=== PATIENT | male | born 1970 | race Caucasian/White ===

== ENCOUNTER 2023-04-14 17:54 | Emergency (ER) | payer BC ==
[~2023-04-14] VITALS: Ht 187 cm; Wt 100.0 kg
[~2023-04-14 17:54] MED LIST: CIPR500T78 PO; CPR250T PO; HYDR-3583 PO; HYDR-3714 PO; MAGN-47 PO; METR500T PO; ONDA8TAB6 PO; OXYC-12 PO; PRM25T PO; SIME125T9 PO; TRAM50TA2 PO
[2023-04-14] MEDS ORDERED: LIDOCAINE/EPI 2% 1:100,00 (XYLOCAINE) 20 ML VIAL INJ STA (18:02)
--- NOTE | 2023-04-14 18:19 | ED Fall/Injury ---
General Chief Complaint: Laceration Stated Complaint: HEAD LACERATION Nursing Triage Note: PT SLIPPED ON THE MAJOR ON THE BOAT RAMP WHILE TRYING TO LOAD THEIR BOAT AT THE [place]ONI AND HIT HIS FACE ON THE CONCRETE. HE HAS A LACERATION RIGHT ABOVE HIS LEFT EYEBROW. DOES NOT THINK HE LOST CONSCIOUSNESS BUT REPORTS IT LEIDA HIM PRETTY GOOD. Source: patient, spouse History of Present Illness Date Seen by Provider: Apr 14, 2023 Time Seen by Provider: 17:56 Initial Comments 52-year-old male presenting by private vehicle from having a fall at the boat ramp where he had slipped trying to load the boat. He has a laceration to his left eyebrow. He denies loss of consciousness but states that it had been dazed him. He denies taking any blood thinners but does take fish oil and had been drinking alcohol today. He denies nausea, vomiting, change in vision, chest pain, neck pain, other injuries from the fall. He states he had last tetanus in last 1-2 years. Occurred: just prior to arrival Severity: moderate Injuries/Pain Location: face Context: slipped Loss of Consciousness: dazed Modifying Factors: Worse With Movement Associated Symptoms (Fall): No Abdominal Pain, No Chest Pain, No Confusion, No Dizziness; Headache (at left eyebrow where he has laceration and cut); No Lightheadedness, No Muscle Spasms, No Nausea/Vomiting, No Neck Pain, No Ringing in Ears, No Seizures, No Shortness of Air, No Slurred Speech, No Trouble Walking, No Vision Changes Allergies and Home Medications Allergies Coded Allergies: No Known Drug Allergies (Unverified , 08/31/11) Patient Home Medication List Home Medication List Reviewed: Yes Cephalexin (Cephalexin) 500 Mg Capsule, 500 MG PO QID Prescribed by: ELENA OMER on 04/14/231955 Metronidazole (Metronidazole) 500 Mg Tablet, 500 MG PO BID Prescribed by: ELENA OMER on 04/14/231955 Oxycodone Hcl/Acetaminophen (Percocet 5-325 Mg Tablet) 1 Each Tablet, 1 EACH PO Q4-6H PRN Prescribed by: ARTHUR REYES on 06/16/14 1115 Review of Systems Review of Systems Constitutional: No chills, No dizziness, No fever Eyes: Denies Blurred Vision, Denies Photophobia, Denies Vision Changes Ears, Nose, Mouth, Throat: denies ear pain, denies ear discharge, denies nose pain, denies nose discharge, denies epistaxis, denies loose teeth Respiratory: no symptoms reported Cardiovascular: no symptoms reported Gastrointestinal: No nausea, No vomiting Genitourinary: No dysuria Musculoskeletal: No neck pain Skin: see HPI Psychiatric/Neurological: See HPI; Denies Numbness, Denies Paresthesia, Denies Seizure, Denies Weakness Past Mndanmr-Esehrr-Scgnfa Hx Patient Social History Tobacco Use?: No Use of E-Cig and/or Vaping dev: Yes E-Cig or Vaping type used: Nicotine Use of E-Cig and/or Vaping Mendez: Current Everyday User Substance use?: No Alcohol Use?: Yes Alcohol type: Beer, Hard Liquor Alcohol Frequency: Daily Pt feels they are or have been: No Immunizations Up To Date Tetanus Booster (TDap): Less than 5yrs Past Medical History Reproductive Disorders: No Physical Exam Vital Signs Vital Signs - First Documented 04/14/23 18:04 Temp 36.2 Pulse 101 Resp 16 B/P (MAP) 127/88 (101) Pulse Ox 97 O2 Delivery Room Air Capillary Refill : Less Than 3 Seconds Height, Weight, BMI Height: 6'2.00" Weight: 230lbs. oz. 104.395357wu; 28.00 BMI Method:Stated General Appearance: WD/WN, other (blood all over face and left eyebrow) HEENT: PERRL/EOMI, TMs normal, pharynx normal, other (Negative francis sign, negative raccoon sign, no CSF otorrhea, no CSF rhinorrhea, no hemotympanum.) Neck: non-tender, full range of motion, supple, normal inspection Cardiovascular: normal peripheral pulses, regular rate, rhythm Respiratory: chest non-tender, lungs clear, normal breath sounds, no respirat ory distress, no accessory muscle use Gastrointestinal: normal bowel sounds, non tender, soft, no pulsatile mass Extremities: normal range of motion, non-tender, normal capillary refill 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, no motor/sensory deficits, alert, oriented x 3 Skin: warm/dry Salty Coma Score Best Eye Response: (4) Open Spontaneously Best Verbal Response: (5) Oriented Best Motor Response: (6) Obeys Commands Salty Total: 15 Procedures/Interventions Wound Location: Face (Left eyebrow) Wound Length (cm): 4.7 Wound's Depth, Shape: linear, contused tissue, sub Q Wound Explored: clean Irrigated w/ Saline (ccs): 250 Betadine Prep?: Yes Anesthesia: Lidocaine w/ Epi Volume Anesthetic (ccs): 7 Suture: Ethlion Suture Size: 5-0 Number of Sutures: 9 Layer Closure?: 1 Sterile Dressing Applied?: Yes Progress After obtaining verbal consent from the patient the wound was irrigated with 250 mils of saline and using Betadine and the wound was also scrubbed and explored. No foreign bodies were seen. The wound was anesthetized with let solution for approximately 15 minutes prior to injecting lidocaine with epinephrine 2%. He had a total of 7 mL of lidocaine with epinephrine infiltrated to the eyebrow laceration. He had a good anesthetic effect with this. Then using 5-0 Ethilon a total of 9 simple interrupted stitches were placed to approximate the wound edges. Patient tolerated procedure well without any immediate complications. Counseled on follow-up and return precautions. Advised to use ice and elevation of his head to help limit swelling and bruising. Stitches can be removed in 7 to 10 days here in the ED or with his primary care provider. Progress/Results/Core Measures Results/Orders My Orders Orders - ELENA OMER MD Ct Head/Face/Cervical Wo (04/14/23 18:01) Lidocaine/Epi 2% 1:100,000 (Xylocaine/Ep (04/14/23 18:02) Suture Set At Bedside (04/14/23 18:02) Wound Dressing-Ed (04/14/23 18:02) Let Solution (Let Solution) (04/14/23 18:36) Ice: Apply To Affected Area (04/14/23 18:36) Head Of Bed Q4H (04/14/23 18:36) Metronidazole Tablet (Flagyl Tablet) (04/14/23 19:53) Cephalexin Capsule (Keflex Capsule) (04/14/23 19:53) Vital Signs/I&O 04/14/23 04/14/23 18:04 20:03 Temp 36.2 36.2 Pulse 101 101 Resp 16 16 B/P (MAP) 127/88 (101) 127/88 Pulse Ox 97 97 O2 Delivery Room Air Room Air Blood Pressure Mean: 101 Progress Progress Note #1: Progress Note Potential diagnosis of eyebrow laceration, facial contusion, intracranial hemorrhage, skull fracture, facial fracture. Obtain CT scan of the head face and cervical spine without contrast to look for acute hemorrhage or bony injury. Ordered lidocaine with epinephrine for anesthetic effect of the left eyebrow. Verbally consented patient for wound repair with sutures and stitches. Progress Note #2: Time: 19:01 Progress Note I reviewed the radiologist report on the CT scan of the head, face, cervical spine and the did not appreciate any acute fractures or intracranial hemorrhage. He has degenerative changes of his cervical spine. We will proceed with repair of the eyebrow laceration and discharged home with return precautions and wound care information. Progress Note #3: Progress Note Since patient did fall in the water after slipping on the boat ramp will place him on antibiotics. From reviewing online medical [place] cephalexin along with metronidazole would help to cover for possible weight pathogens. Given a first dose of cephalexin and metronidazole here in the ED and prescription sent to the pharmacy. Diagnostic Imaging Diagonstic Imaging: CT Plain Films/CT/US/NM/MRI: facial bones, c-spine, head Comments NAME: MYRIAM MERINO [facility] REC#: [id number] PT STATUS: REG ER : 1970 PHYSICIAN: ELENA OMER MD ADMIT DATE: 04/14/23/ER FS Draft Date of Exam:04/14/23 CT HEAD/FACE/CERVICAL WO PROCEDURE: CT head, face, and cervical spine without contrast. TECHNIQUE: Multiple contiguous axial images were obtained through the head, neck, and facial bones without the use of intravenous contrast. Sagittal and coronal reformations through the cervical spine and facial bones were also performed. Auto Exposure Controls were utilized during the CT exam to meet ALARA standards for radiation dose reduction. INDICATION: Fall with head, face and neck injuries. Alcohol intoxication. COMPARISON: None FINDINGS: CT HEAD: The ventricles and cortical sulci appear age-appropriate. There is no midline shift or mass effect. No acute intracranial hemorrhage is seen. There is no CT evidence of acute territorial ischemia. The calvarium appears intact. CT FACE: The pterygoid plates are intact. The zygomatic arches are intact. The mandible appears intact and normal in alignment. The patient is edentulous. No fluid levels are seen in the maxillary sinuses. No fractures are seen. There is mucosal thickening in the ethmoid sinuses. No post septal edema is seen. No fractures are seen in the orbits. There is moderate left supraorbital soft tissue edema with laceration. No radiopaque foreign bodies appreciated. CT CERVICAL SPINE: There is grade 1 anterolisthesis at C3-C4 and C4-C5. There are moderate degenerative changes at C5-C6 and C6-C7. There is grade 1 anterolisthesis at C7-T1. There is multilevel facet arthropathy bilaterally. No acute fracture is seen. No bony fragments or hyperdense fluid collections are seen in the spinal canal. Surrounding soft tissues demonstrate no acute abnormality. IMPRESSION: 1. No acute intracranial hemorrhage or calvarium fracture. 2. Soft tissue swelling and laceration in the left supraorbital region. No facial fracture is seen. 3. Degenerative changes in the cervical spine with no acute fracture seen. Dictated on workstation # [id number] Dict: 04/14/23 1847 Trans: 04/14/23 1855 [facility] [phone] Interpreted by: TWAN PRICE MD Electronically signed by: Reviewed: Reviewed by Me Departure Impression Primary Impression: Laceration of eyebrow, left Qualified Codes: S01.112A - Laceration without foreign body of left eyelid and periocular area, initial encounter Additional Impressions: Fall from dock, initial encounter Closed head injury without loss of consciousness Qualified Codes: S09.90XA - Unspecified injury of head, initial encounter Disposition: 01 HOME, SELF-CARE Condition: Stable Departure-Patient Inst. Decision time for Depature: 19:54 Referrals: MYRIAM MAYA MD (PCP) Primary Care Physician [facility] [place] Patient Instructions: Preventing Falls ED, Minor Head Injury, Adult ED, Laceration Repair With Stitches ED Add. Discharge Instructions: Try to stay well-hydrated and drink plenty of water and electrolyte drinks. Avoid alcohol drinks. May use acetaminophen and/or ibuprofen if needed for pain. Try to keep your head elevated at least 30 to 45 degrees at all times for the next 2 to 3 days to help limit swelling, pain, bleeding and bruising. May apply ice 15 to 20 minutes every few hours while awake to help with swelling, bruising, pain to the face and left eyebrow. Keep the wound and stitches clean and dry for the first 24 hours. After that you may remove the dressing and wash like normal but do not soak the wound so no pools or lakes or swimming. Stitches will need to be removed in 7 to 10 days. You could return here to the emergency department or see your primary care provider. All discharge instructions reviewed with patient and/or family. Voiced understanding. Scripts Cephalexin (Cephalexin) 500 Mg Capsule 500 MG PO QID for laceration for 7 Days, #28 CAP 0 Refills Prov: ELENA OMER MD 04/14/23 Metronidazole (Metronidazole) 500 Mg Tablet 500 MG PO BID for laceration for 7 Days, #14 TAB 0 Refills Prov: ELENA OMER MD 04/14/23 ELENA OMER MD Apr 14, 2023 18:19
[2023-04-14] MEDS ORDERED: L.E.T. SOLUTION 3 ML SYR TOP STA (18:36)
--- NOTE | 2023-04-14 18:57 | Diagnostic Imaging Report ---
PROCEDURE: CT head, face, and cervical spine without contrast. TECHNIQUE: Multiple contiguous axial images were obtained through the head, neck, and facial bones without the use of intravenous contrast. Sagittal and coronal reformations through the cervical spine and facial bones were also performed. Auto Exposure Controls were utilized during the CT exam to meet ALARA standards for radiation dose reduction. INDICATION: Fall with head, face and neck injuries. Alcohol intoxication. COMPARISON: None FINDINGS: CT HEAD: The ventricles and cortical sulci appear age-appropriate. There is no midline shift or mass effect. No acute intracranial hemorrhage is seen. There is no CT evidence of acute territorial ischemia. The calvarium appears intact. CT FACE: The pterygoid plates are intact. The zygomatic arches are intact. The mandible appears intact and normal in alignment. The patient is edentulous. No fluid levels are seen in the maxillary sinuses. No fractures are seen. There is mucosal thickening in the ethmoid sinuses. No post septal edema is seen. No fractures are seen in the orbits. There is moderate left supraorbital soft tissue edema with laceration. No radiopaque foreign bodies appreciated. CT CERVICAL SPINE: There is grade 1 anterolisthesis at C3-C4 and C4-C5. There are moderate degenerative changes at C5-C6 and C6-C7. There is grade 1 anterolisthesis at C7-T1. There is multilevel facet arthropathy bilaterally. No acute fracture is seen. No bony fragments or hyperdense fluid collections are seen in the spinal canal. Surrounding soft tissues demonstrate no acute abnormality. IMPRESSION: 1. No acute intracranial hemorrhage or calvarium fracture. 2. Soft tissue swelling and laceration in the left supraorbital region. No facial fracture is seen. 3. Degenerative changes in the cervical spine with no acute fracture seen. Dictated by: Dictated on workstation # [id number]
[2023-04-14] MEDS ORDERED: CEPHALEXIN 250 MG CAPSULE PO STA (19:53)
[2023-04-14] MEDS ORDERED: metroNIDAZOLE 500 MG (FLAGYL) TAB PO STA (19:53)
[2023-04-14] MEDS ORDERED: METR-145 PO (19:56)
[2023-04-14] MEDS ORDERED: CEPH500C PO (19:56)
[2023-04-14 20:03] VITALS: BP 127/88
== END 2023-04-14 20:05 | disposition home or self-care (01) ==
LOC: EDUNIT# 17:54 → ER FS 17:57
DX: S09.90XA Unspecified injury of head, initial encounter (principal); S01.112A Laceration without foreign body of left eyelid and periocular area, initial encounter; M47.812 Spondylosis without myelopathy or radiculopathy, cervical region; F17.290 Nicotine dependence, other tobacco product, uncomplicated; W17.4XXA Fall from dock, initial encounter; Y92.838 Other recreation area as the place of occurrence of the external cause
CPT/HCPCS: 12013; 70450; 70486; 72125

== ENCOUNTER 2023-04-23 15:32 | Emergency (ER) | payer BC ==
[~2023-04-23 15:32] MED LIST changes: +CEPH500C PO; +METR-145 PO
[2023-04-23 15:42] VITALS: BP 124/89
== END 2023-04-23 15:51 | disposition home or self-care (01) ==
LOC: EDUNIT# 15:32 → ER FS 15:34
DX: Z48.02 Encounter for removal of sutures (principal)